=== PATIENT | female | born 1990 | race Caucasian/White ===

== ENCOUNTER 2022-10-29 09:06 | Emergency (ER) | payer BC ==
[~2022-10-29] VITALS: Ht 175.3 cm; Wt 59.0 kg
--- NOTE | 2022-10-29 09:18 | NUR ---
ANXIETY, OFF FOCALIN FOR 4 WEEKS
--- NOTE | 2022-10-29 09:25 | NUR ---
SHE TRIED VYVANCE, BUT THAT IT IS NOT EFFECYIVE FOCALIN
[2022-10-29 09:38] VITALS: BP 125/75
--- NOTE | 2022-10-29 09:38 | NUR ---
Patient discharged to home in stable condition. Written and verbal after care instructions given. Patient verbalizes understanding of instruction.
== END 2022-10-29 09:39 | disposition home or self-care (01) ==
LOC: ER 09:06
DX: F41.0 Panic disorder [episodic paroxysmal anxiety] (principal); F90.9 Attention-deficit hyperactivity disorder, unspecified type; F10.10 Alcohol abuse, uncomplicated; Y90.9 Presence of alcohol in blood, level not specified